=== PATIENT | female | born 1975 ===

== ENCOUNTER → 2016-10-06 | Outpatient (CLI) | payer BC | LOC: BMCIMAGING 11:22 | DX: Z12.31 Encounter for screening mammogram for malignant neoplasm of breast (principal); R92.8 Other abnormal and inconclusive findings on diagnostic imaging of breast | CPT/HCPCS: G0202 ==

== ENCOUNTER → 2016-10-18 | Outpatient (CLI) | payer BC | LOC: BMCIMAGING 12:00 | DX: R92.8 Other abnormal and inconclusive findings on diagnostic imaging of breast (principal) | CPT/HCPCS: G0204 ==

== ENCOUNTER → 2017-10-30 | Outpatient (CLI) | payer BC | LOC: BMCIMAGING 12:14 | PROVIDERS: ATTEND Internal Medicine | DX: Z12.31 Encounter for screening mammogram for malignant neoplasm of breast (principal) ==